=== PATIENT | male | born 2000 | race Caucasian/White ===

== ENCOUNTER → 2021-05-22 | Outpatient (REF) | payer BC | LOC: M LAB REF 17:42 | PROVIDERS: ATTEND Dermatology | DX: D48.9 Neoplasm of uncertain behavior, unspecified (principal) ==

== ENCOUNTER → 2022-03-10 | Outpatient (REF) | payer BC ==
[2022-03-10 09:12] LABS: SEMEN APPEARANCE OPAQUE (OPAQUE); SEMEN VISCOSITY LIQUID (LIQUID); WBC CONCENTRATION <=1 M/ml (<=1 M/ml)
== END ==
LOC: M LAB REF 08:45
PROVIDERS: ATTEND Advanced Practice Midwife
DX: Z31.41 Encounter for fertility testing (principal)